=== PATIENT | female | born 1935 | race Caucasian/White ===

== ENCOUNTER 2020-05-01 05:33 | Observation (INO) | payer OTHER ==
[~2020-05-01] VITALS: Ht 170.2 cm; Wt 53.2 kg
[2020-05-01 05:50] VITALS: Ht 170.2 cm; Wt 53.2 kg
[2020-05-01 07:30] LABS: BASOPHIL % 0.2 % (0-2); PLATELET COUNT 249 x10^3mcL (130-400); RED CELL DISTRIBUTION WIDTH 14.7 % (11.5-14.5)
[2020-05-01 07:39] LABS: FREE T4 1.34 ng/dL (0.76-1.46); FREE THYROXINE INDEX 3.7 ug/dL (1.4-4.5); T4(THYROXINE) 10.2 ug/dL (4.7-13.3)
[2020-05-01] MEDS ORDERED: LEVO-T50 MCG PO (07:39)
[2020-05-01] MEDS ORDERED: FLOVENT DI50 MCG/Ac1 IH (07:40)
[2020-05-01] MEDS ORDERED: CLARITIN LIQUI-10 MG PO (07:40)
[2020-05-01 07:41] LABS: CARBON DIOXIDE 23.9 mmol/L (21-32); CHLORIDE SERUM 100 mmol/L (98-107); CREATININE SERUM 0.9 mg/dL (0.6-1.0); GLUCOSE SERUM 94 mg/dL (74-106); POTASSIUM SERUM 4.1 mmol/L (3.5-5.1); SODIUM SERUM 134 mmol/L (136-145)
[2020-05-01] MEDS ORDERED: ATIVAN0.5 M1 PO (07:41)
[2020-05-01] MEDS ORDERED: APAP EXTRA STR500 MG PO (07:41)
[2020-05-01] MEDS ORDERED: AMLODIPINE BESYL5 M2 PO (07:41)
[2020-05-01 07:42] LABS: CK-MB 2.2 ng/mL (0-3.6)
[2020-05-01] MEDS ORDERED: AUGMENTIN 875-1 EACH PO (07:42)
[2020-05-01 07:50] LABS: ALBUMIN 3.9 g/dL (3.4-5.0); ALKALINE PHOSPHATASE 59 U/L (46-116); ALT/SGPT 19 U/L (14-59); AST/SGOT 26 U/L (15-37); BILIRUBIN TOTAL 0.5 mg/dL (0.20-1.00); C REACTIVE PROTEIN 0.4 mg/dL (<=0.9); TOTAL PROTEIN, SERUM 7.6 g/dL (6.4-8.2)
[2020-05-01 08:49] LABS: microscopic required? YES; urine erythrocyte NEGATIVE (NEGATIVE)
[2020-05-01 10:44] LABS: ERYTHROCYTE SED RATE 11 mm/hr (0-30)
[2020-05-01 11:54] VITALS: BP 161/96
[2020-05-01 16:45] VITALS: BP 163/99
[2020-05-01 21:07] VITALS: BP 154/85
[2020-05-02 06:23] VITALS: BP 155/85
[2020-05-02 07:28] LABS: BASOPHIL % 0.4 % (0-2); PLATELET COUNT 309 x10^3mcL (130-400)
[2020-05-02 07:47] LABS: RED CELL DISTRIBUTION WIDTH 14.8 % (11.5-14.5)
[2020-05-02 08:12] LABS: ALKALINE PHOSPHATASE 50 U/L (46-116); ALT/SGPT 15 U/L (14-59); AST/SGOT 23 U/L (15-37); BILIRUBIN TOTAL 0.3 mg/dL (0.20-1.00); CALCIUM 8.5 mg/dL (8.5-10.1); CARBON DIOXIDE 25.7 mmol/L (21-32); CHLORIDE SERUM 103 mmol/L (98-107); CHOLESTEROL 179 mg/dL (<200); CREATININE SERUM 0.8 mg/dL (0.6-1.0); GLUCOSE SERUM 79 mg/dL (74-106); HDL CHOLESTEROL 59 mg/dL (40-60); MAGNESIUM 2.2 mg/dL (1.8-2.4); POTASSIUM SERUM 4.2 mmol/L (3.5-5.1); SODIUM SERUM 136 mmol/L (136-145); TOTAL PROTEIN, SERUM 6.2 g/dL (6.4-8.2); TRIGLYCERIDES 84 mg/dL (<150)
[2020-05-02 08:14] LABS: ALBUMIN 3.1 g/dL (3.4-5.0)
[2020-05-02 12:39] VITALS: BP 122/70
[2020-05-02] MEDS ORDERED: ELIQUIS2.5 MG PO (14:07)
[2020-05-02] MEDS ORDERED: BET80 PO (14:07)
[2020-05-02] MEDS ORDERED: KEFLEX500 M1 PO (14:09)
[2020-05-02 14:52] VITALS: BP 122/70
[2020-05-02 15:58] VITALS: BP 171/103
[2020-05-02 20:28] VITALS: BP 125/73
[2020-05-03 01:20] VITALS: BP 105/77
[2020-05-03 01:40] VITALS: BP 139/86
[2020-05-03 07:33] LABS: BASOPHIL % 0.5 % (0-2); PLATELET COUNT 328 x10^3mcL (130-400); RED CELL DISTRIBUTION WIDTH 14.9 % (11.5-14.5)
[2020-05-03 08:01] LABS: ALKALINE PHOSPHATASE 49 U/L (46-116); ALT/SGPT 13 U/L (14-59); AST/SGOT 24 U/L (15-37); BILIRUBIN TOTAL 0.2 mg/dL (0.20-1.00); CALCIUM 8.6 mg/dL (8.5-10.1); CARBON DIOXIDE 26.2 mmol/L (21-32); CHLORIDE SERUM 102 mmol/L (98-107); CREATININE SERUM 0.8 mg/dL (0.6-1.0); GLUCOSE SERUM 82 mg/dL (74-106); PHOSPHOROUS 4.2 mg/dL (2.5-4.9); POTASSIUM SERUM 4.1 mmol/L (3.5-5.1); SODIUM SERUM 137 mmol/L (136-145)
[2020-05-03 08:05] LABS: ALBUMIN 3.1 g/dL (3.4-5.0)
[2020-05-03 08:24] VITALS: BP 134/80
[2020-05-03 08:55] LABS: TOTAL PROTEIN, SERUM 6.4 g/dL (6.4-8.2)
[2020-05-03 12:19] VITALS: BP 120/92
[2020-05-03 14:03] VITALS: BP 120/83
== END 2020-05-03 16:25 | disposition home or self-care (01) ==
LOC: ED 05:33 → DU 09:37
PROVIDERS: Specialist; ADMIT Hospitalist; ATTEND Hospitalist
DX: I48.20 Chronic atrial fibrillation, unspecified (principal); I10 Essential (primary) hypertension; J32.9 Chronic sinusitis, unspecified; E03.9 Hypothyroidism, unspecified; M81.0 Age-related osteoporosis without current pathological fracture; F41.9 Anxiety disorder, unspecified; N39.0 Urinary tract infection, site not specified; R30.0 Dysuria; R07.89 Other chest pain
CPT/HCPCS: 36600; 83880; 84439; 87804; 97116-GP; G0378; J0696; J1885; J7030

== ENCOUNTER 2020-05-25 06:43 | Emergency (ER) | payer OTHER, SELFPAY ==
[~2020-05-25] VITALS: Ht 170.2 cm; Wt 53.5 kg
[~2020-05-25 06:43] MED LIST: AMLODIPINE BESYL5 M2 PO; APAP EXTRA STR500 MG PO; ATIVAN0.5 M1 PO; AUGMENTIN 875-1 EACH PO; BET80 PO; CLARITIN LIQUI-10 MG PO; ELIQUIS2.5 MG PO; FLOVENT DI50 MCG/Ac1 IH; KEFLEX500 M1 PO; LEVO-T50 MCG PO
[2020-05-25 06:54] VITALS: Ht 170.2 cm; Wt 53.5 kg
[2020-05-25 08:33] LABS: BASOPHIL % 0.4 % (0.2-1.3); PLATELET COUNT 323 x10^3mcL (179-408)
[2020-05-25 11:27] LABS: ALBUMIN 3.7 g/dL (3.4-5.0); ALKALINE PHOSPHATASE 58 U/L (46-116); ALT/SGPT 25 U/L (14-59); AST/SGOT 25 U/L (15-37); BILIRUBIN TOTAL 0.35 mg/dL (0.20-1.00); CALCIUM 9.3 mg/dL (8.5-10.1); CARBON DIOXIDE 24.2 mmol/L (21-32); CREATININE SERUM 0.8 mg/dL (0.6-1.0); GLUCOSE SERUM 97 mg/dL (74-106); TOTAL PROTEIN, SERUM 7.4 g/dL (6.4-8.2)
[2020-05-25 15:51] VITALS: BP 164/65
[2020-05-25 16:14] LABS: CHLORIDE SERUM 104 mmol/L (98-107); POTASSIUM SERUM 4.6 mmol/L (3.5-5.1); SODIUM SERUM 142 mmol/L (136-145)
== END 2020-05-25 14:48 | disposition home or self-care (01) ==
LOC: ED 06:43
PROVIDERS: Specialist
DX: M79.10 Myalgia, unspecified site (principal); I10 Essential (primary) hypertension; E03.9 Hypothyroidism, unspecified; Z88.2 Allergy status to sulfonamides; Z88.8 Allergy status to other drugs, medicaments and biological substances; Z20.828 Contact with and (suspected) exposure to other viral communicable diseases
CPT/HCPCS: 87804; J1885; J7030; U0003